=== PATIENT | female | born 1995 | race Caucasian/White ===

== ENCOUNTER 2023-04-29 08:00 | Outpatient (OUT) | payer BC, SELFPAY ==
--- NOTE | 2023-04-29 08:03 | US_ITS ---
The [address] [address] Patient Name: BETH PANTOJA MRN: [id number] date: 1995 Sex: F Assigned Patient Location: US Current Patient Location: US Accession/Order Number: [id number] Exam Date: 04/29/2023 08:04 Report Date: 04/29/2023 08:40 At the request of: RILEY ANTUNEZ Procedure: US pelvis EXAM: US pelvis HISTORY: . MENORRHAGIA, PELVIC PAIN . COMPARISON: None TECHNIQUE: Transabdominal scanning was performed FINDINGS: Scanning of the pelvis demonstrates an anteverted uterus measuring 8.8 x 4.6 x 5.8 cm. Endometrial complex measures 8 mm. Right ovary measures 4.8 x 3.8 x 1.8 cm. Color-flow is noted. Resistive indexes 0.5. No masses are noted. Left ovary measures 3.7 x 2.5 x 3.3 cm. Color-flow is noted. Resistive indexes 0.5. No masses are noted. No fluid is noted in the pelvis. US/US pelvis IMPRESSION: Normal ultrasound of the pelvis. Electronically authenticated by: KACY MCKINLEY Date: 04/29/2023 08:40
[2023-04-29 08:59] LABS: Basophils Absolute Auto 0.1 10^3/uL (0.0-0.1); Basophils Percent Auto 0.9 % (0.2-2.0); Eosinophils Absolute Auto 0.2 10^3/uL (0.0-0.7); Eosinophils Percent Auto 2.4 % (0.9-7.0); Hematocrit 39.4 % (36.0-48.0); Hemoglobin 12.9 g/dL (12.0-16.0); Immature Granulocytes Abs Auto 0.03 10^3/uL (0.00-0.03); Immature Granulocytes Pct Auto 0.4 % (0.0-0.5); Lymphocytes Absolute Auto 2.6 10^3/uL (1.2-3.8); Mean Corpuscular HGB Conc 32.7 g/dL (29.9-35.2); Mean Corpuscular Hemoglobin 29.3 pg (26.7-34.0); Mean Corpuscular Volume 89.5 fL (81.0-99.0); Mean Platelet Volume 9.6 fL (9.5-13.5); Monocytes Absolute Auto 0.4 10^3/uL (0.3-0.8); Monocytes Percent Auto 5.8 % (1.7-12.0); Neutrophils Absolute Auto 3.5 10^3/uL (1.4-6.5); Neutrophils Percent Auto 51.5 % (43.0-75.0); Platelet Count 200 10^3/uL (150-450); Red Cell Distribution Width 12.3 % (11.0-15.0); White Blood Count 6.7 10^3/uL (4.0-11.0)
[2023-04-29 09:09] LABS: INR 1.02; Partial Thromboplastin Time 29.1 sec (22.3-36.2); Prothrombin Time 10.8 sec (9.0-11.6)
[2023-04-29 09:25] LABS: Estimated Average Glucose 103 mg/dL; Glycohemoglobin A1C 5.2 % (4.5-6.2)
[2023-04-29 10:29] LABS: HCG Quantitative <1 mIU/mL; Thyroid Stimulating Hormone 11.008 uIU/mL (0.358-3.740)
[2023-04-29 10:46] LABS: Free T4 0.93 ng/dL (0.76-1.46)
== END 2023-04-29 08:01 | disposition home or self-care (01) ==
LOC: US 08:00 → NOMS 11:27
PROVIDERS: Visit Provider Obstetrics & Gynecology
DX: N92.0 Excessive and frequent menstruation with regular cycle (principal)
CPT/HCPCS: 36415; 76856; 83036; 84439; 84443; 84702; 85025; 85610; 85730

== ENCOUNTER 2023-08-12 20:22 | Outpatient (REF) | payer BC, SELFPAY ==
--- OUTSIDE RECORDS SUMMARY | 2023-08-12 20:38 | XMS_ITS | CCD ---
Author Organization [facility] Care Team Providers Care Solar Sales Associate Name Role Phone Vernon Negro Unavailable Unavailable RIO SETH~[phone] UNKNOWN Unavailable Unavailable REQUEST, DR ROSETTE LISTED Primary Care Unavaila jose NEGRO, DR HIGGINS Consulting Unavailable SEAN, DR HIGGINS Attending Unavailable SEAN, DR HIGGINS Admitting Unavailable RILEY ANTUNEZ Attending Unavailable Allergies Allergy Classification Reported Allergen(s) Allergy Type Date of Onset Reaction(s) Facility (1 source) sulfamethoxazole / trimethoprim; Translations: [Bactrim DS] Drug Allergy [facility] Repository (1 source) Sulfamethoxazole / Trimethoprim Drug Allergy 4 [facility] Repository Problems Problem Classification Problem Date Documented Date Episodic/Chronic Immunizations and screening for infectious disease (1 source) Encounter for screening for infections with a predominantly sexual mode of transmission; Translations: [ENC SCREEN INFECTIONS SEXL TRANSMS] Onset: 2021 Episodic Other screening for suspected conditions (not mental disorders or infectious disease) (4 sources) Encounter for screening for malignant neoplasm of cervix; Translations: [ENC SCREENING MALIG NEOPLASM CERV] Onset: 05-15-2021 Episodic Results Test Name Value Interpretation Reference Range Facil ity PAP ACOG PANEL 2: 21 to 29on 05-19-2021 . . Normal [facility] Comment on above: Performed By: #### [id number] #### [facility] [address] [address] [address] Salvador Escobedo Age Gdln ACOG Testing - Normal [facility] Comment on above: Performed By: #### [id number] #### [facility] [address] [address] [address] Salvador Escobedo DIAGNOSIS: Comment [facility] Comment on above: Result Comment: NEGA TIVE FOR INTRAEPITHELIAL LESION OR MALIGNANCY. Performed By: #### 4 [id number] #### [facility] [address] [place] [address] Dr. Salvador Escobedo Methodology: Comment Normal [facility] Comment on above: Result Comment: This liquid based ThinPrep(R) pap test was screened with the use of an image guided system. Performed By: #### [id number] #### [facility] [address] [place] [address] Dr. Salvador Escobedo Note: Comment Normal [facility] Comment on above: Result Comment: The Pap smear is a screening test designed to aid in the detection of premalignant and malignant conditions of the uterine cervix. It is not a diagnostic procedure and should not be used as the sole means of detecting cervical cancer. Both false-positive and false-negative reports do occur. . Performed By: #### 4 [id number] #### [facility] [address] [place] [address] Dr. Salvador Escobedo Performed by: Comment Normal [facility] Comment on above: Result Comment: Ebenezer Velasco, Brine Purifier (ASCP) Performed By: #### 4 [id number] #### [facility] [address] [place] [address] Dr. Salvador Escobedo Reflex Criteria: Comment Normal [facility] Comment on above: Result Comment: The HPV DNA reflex criteria were not met with this specimen result therefore, no HPV testing was performed. . Performed By: #### 4 [id number] #### [facility] [address] [place] [address] Dr. Salvador Escobedo Specimen adequacy: Comment Normal [facility] Comment on above: Result Comment: Sati sfactory for evaluation. Endocervical and/or squamous metaplastic cells (endocervical component) are present. Performed By: #### 4 [id number] #### [facility] [address] [place] [address] Dr. Salvador Escobedo VAGINITIS/VAGINOSIS DNA PROB Martin 05-17-2021 Siria species Negative Normal Negative [facility] Comment on above: Performed By: #### V AGINT #### [facility] [address] [place] [address] Dr. Salvador Escobedo Gardnerella vaginalis Negative Normal Negative [facility] Comment on above: Performed By: #### V AGINT #### [facility] [address] [place], [place] [address] Dr. Salvador Escobedo Trichomonas vaginalis Negative Normal Negative [facility] Comment on above: Performed By: #### V AGINT #### [facility] [address] [place], [place] [address] Dr. Salvador Escobedo Encounters Encounter Date Encounter Type Care Provider Facility Start: 04-28-2023 End: 04-28-2023 ambulatory RILEY HARMONY Not Available Start: 05-15-2021 End: 05-15-[address] NONE LISTED REQUEST Facility: Start: 09-28-2016 End: 09-29-2016 Ambulatory Vernon Negro Facility:[facility] Payers Date Payer Category Payer Unknown [id number] 2016 Unknown [id number] 1995 Unknown [id number] 1995 Unknown [id number] 1961 Self-pay [id number] Summary Purpose Family History No Family History Records FoundNo Family History Records FoundNo Family History Records Found Advance Directives No Advanced Directives Records FoundNo Advanced Directives Records FoundNo Advanced Directives Records Found Additional Source Comments INFORMATION SOURCE (unrecogn ized section and content) DATE CREATED AUTHOR 10/01/2017 [facility] DATE CREATED AUTHOR AUTHOR'S ORGANIZ ATION 05/19/2021 [facility] DATE CREATED AUTHOR AUTHOR'S ORGANIZ ATION 04/29/2023 [facility] EPIC FOR RECORDS PERTAINING TO PATIENTS WHO ARE OR HAVE BEEN ENROLLED IN A CHEMICAL DEPENDENCY/SUBSTANCEABUSE PROGRAM, SOME INFORMATION MAY BE OMITTED. This clinical summary was aggregated from multiple sources. Caution should be exercised in using it in the provision of clinical care. This summary normalizes information from multiple sources, and as a consequence, information in this document may materially change the coding, format and clinical context of patient data. In addition, data may be omitted in some cases. CLINICAL DECISIONS SHOULD BE BASED ON THE PRIMARY CLINICAL RECORDS. [facility]. provides no warranty or guarantee of the accuracy or completeness of information in this document.
== END 2023-08-12 20:23 | disposition home or self-care (01) ==
LOC: LAB 20:22
PROVIDERS: Visit Provider Obstetrics & Gynecology
DX: Z01.419 Encounter for gynecological examination (general) (routine) without abnormal findings (principal)
CPT/HCPCS: 87624; G0145

== ENCOUNTER 2023-12-12 08:00 | Outpatient (OUT) | payer BC, SELFPAY ==
--- OUTSIDE RECORDS SUMMARY | 2023-12-12 08:06 | XMS_ITS | CCD ---
Author Organization [facility] Care Team Providers Care Claims Correspondence Clerk Name Role Phone Vernon Negro Unavailable Unavailable RIO SETH~[phone] UNKNOWN Unavailable Unavailable REQUEST, DR NONE LISTED Primary Care Unavaila jose NEGRO, DR HIGGINS Consulting Unavailable SEAN, DR HIGGINS Attending Unavailable SEAN, DR HIGGINS Admitting Unavailable RILEY ANTUNEZ Attending Unavailable RILEY ANTUNEZ Attending Unavailable Allergies Allergy Classification Reported Allergen(s) Allergy Type Date of Onset Reaction(s) Facility (1 source) sulfamethoxazole / trimethoprim; Translations: [Bactrim DS] Drug Allergy [facility] Repository (1 source) Sulfamethoxazole / Trimethoprim Drug Allergy 4 [facility] Repository Problems Problem Classification Problem Date [...] 2: 21 to 29on 05-19-2021 . . [facility] Comment on above: Performed By: #### [id number] #### [facility] [address] [address] [address] Salvador Escobedo Age Gdln ACOG Testing - Normal [facility] Comment on above: Performed By: #### 4 [id number] #### [facility] [address] [address] [address] Salvador Escobedo DIAGNOSIS: Comment [facility] Comment on above: Result Comment: NEGA TIVE FOR INTRAEPITHELIAL LESION OR MALIGNANCY. Performed By: #### 4 [id number] #### [facility] [address] [place] [address] Dr. Salvador Escobedo Methodology: Comment Normal [facility] Comment on above: Result Comment: This liquid based ThinPrep(R) pap test was screened with the use of an image guided system. Performed By: #### 4 [id number] #### [facility] [address] [place] [address] Dr. Salvador Escobedo Note: Comment Normal [facility] Comment on above: Result Comment: The Pap smear is a screening test designed to aid in the detection of premalignant and malignant conditions of the uterine cervix. It is not a diagnostic procedure and should not be used as the sole means of detecting cervical cancer. Both false-positive and false-negative reports do occur. . Performed By: #### 4 [id number] #### [facility] [address] [place] [address] Dr. Salvador Escobedo Performed by: Comment Normal [facility] Comment on above: Result Comment: Ebenezer Velasco, Addiction Treatment Counselor (ASCP) Performed By: #### 4 [id number] #### [facility] [address] [place] [address] Dr. Salvador Escobedo Reflex Criteria: Comment Normal [facility] Comment on above: Result Comment: The HPV DNA reflex criteria were not met with this specimen result therefore, no HPV testing was performed. . Performed By: #### 4 [id number] #### [facility] [address] [place] [address] Dr. Salvador Escobedo Specimen adequacy: Comment Normal [facility] Comment on above: Result Comment: Sati sfactory for evaluation. Endocervical and/or squamous metaplastic cells (endocervical component) are present. Performed By: #### 4 [id number] #### [facility] [address] [place] [address] Dr. Salvador Escobedo VAGINITIS/VAGINOSIS DNA PROB Martin 05-17-2021 Siria species Negative Normal Negative [facility] Comment on above: Performed By: #### V AGINT #### [facility] [address] [address] [address] Salvador Escobedo Gardnerella vaginalis Negative Normal Negative [facility] Comment on above: Performed By: #### V AGINT #### [facility] [address] [address] [address] Salvador Escobedo Trichomonas vaginalis Negative Normal Negative [facility] Comment on above: Performed By: #### V AGINT #### [facility] [address] [address] [address] Salvador Escobedo Encounters Encounter Date Encounter Type Care Provider Facility Start: 08-12-2023 End: 08-12-2023 ambulatory RILEY HARMONY Not Available Start: 04-28-2023 End: 04-28-2023 ambulatory RILEY HARMONY Not Available Start: 05-15-2021 End: 05-15-[address] NONE LISTED REQUEST Facility: Start: 09-28-2016 End: 09-29-2016 Ambulatory Vernon Negro Facility:[facility] Payers Date Payer Category Payer Unknown [id number] 2016 Unknown [id number] 1995 Unknown [id number] 1995 Unknown [id number] [id number] 1995 Unknown [id number] 1961 Self-pay [id number] Summary Purpose Family History No Family History Records FoundNo Family History Records FoundNo Family History Records Found Advance Directives No Advanced Directives Records FoundNo Advanced Directives Records FoundNo Advanced Directives Records Found Additional Source Comments INFORMATION SOURCE (unrecogn ized section and content) DATE CREATED AUTHOR 10/01/2017 [facility] DATE CREATED AUTHOR AUTHOR'S ORGANIZ ATION 05/19/2021 [facility] DATE CREATED AUTHOR AUTHOR'S ORGANIZ ATION 08/14/2023 [facility] EPIC FOR RECORDS PERTAINING TO PATIENTS [...] BE BASED ON THE PRIMARY CLINICAL RECORDS. [facility] [employer] [facility]. provides no warranty or guarantee of the accuracy or completeness of information in this document.
[2023-12-12 08:28] LABS: Basophils Percent Auto 0.6 % (0.2-2.0); Eosinophils Absolute Auto 0.2 10^3/uL (0.0-0.7); Hematocrit 37.5 % (36.0-48.0); Hemoglobin 12.8 g/dL (12.0-16.0); Immature Granulocytes Abs Auto 0.02 10^3/uL (0.00-0.03); Immature Granulocytes Pct Auto 0.3 % (0.0-0.5); Lymphocytes Absolute Auto 2.8 10^3/uL (1.2-3.8); Lymphocytes Percent Auto 41.3 % (20.5-60.0); Mean Corpuscular HGB Conc 34.1 g/dL (29.9-35.2); Mean Corpuscular Hemoglobin 29.9 pg (26.7-34.0); Mean Corpuscular Volume 87.6 fL (81.0-99.0); Mean Platelet Volume 9.9 fL (9.5-13.5); Monocytes Absolute Auto 0.4 10^3/uL (0.3-0.8); Monocytes Percent Auto 5.7 % (1.7-12.0); Neutrophils Absolute Auto 3.3 10^3/uL (1.4-6.5); Neutrophils Percent Auto 49.1 % (43.0-75.0); Platelet Count 237 10^3/uL (150-450); Red Blood Count 4.28 10^6/uL (4.20-5.40); Red Cell Distribution Width 12.6 % (11.0-15.0); White Blood Count 6.7 10^3/uL (4.0-11.0)
[2023-12-12 10:57] LABS: Free T3 3.78 pg/mL (2.18-3.98); Thyroid Stimulating Hormone 6.195 uIU/mL (0.358-3.740)
== END 2023-12-12 08:01 | disposition home or self-care (01) ==
PROVIDERS: PCP Family Medicine; Visit Provider Family Medicine
DX: R20.2 Paresthesia of skin (principal)
CPT/HCPCS: 36415; 83540; 84436; 84443; 84481; 85025

== ENCOUNTER 2024-09-02 12:17 | Outpatient (REF) | payer BC, SELFPAY ==
[2024-09-06 16:09] LABS: Age Gdln ACOG Testing Note (.); HPV Aptima Negative (Negative); IGP, Aptima HPV, rfx 16/18,45 Note (.)
== END 2024-09-02 12:18 | disposition home or self-care (01) ==
LOC: LAB 12:17
PROVIDERS: PCP Family Medicine; Visit Provider Obstetrics & Gynecology
DX: Z01.419 Encounter for gynecological examination (general) (routine) without abnormal findings (principal)
CPT/HCPCS: 87624; 88175